=== PATIENT | female | born 1975 | race Caucasian/White ===

== ENCOUNTER 2016-06-20 12:57 | Emergency (ER) | payer SELFPAY ==
[~2016-06-20] VITALS: Ht 152.4 cm; Wt 41.5 kg
[~2016-06-20 12:57] MED LIST: NAPR500 PO
[2016-06-20 12:59] VITALS: BP 122/70; PULSE 98; RESP 20; TEMP 98.5; O2SAT 98
[2016-06-20] MEDS ORDERED: PERM5CRE11 TOPICAL (14:10)
[2016-06-20] MEDS ORDERED: PRED-503 PO (14:10)
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
== END 2016-06-20 15:00 | disposition home or self-care (01) ==
LOC: NEPK 12:57
DX: R21 Rash and other nonspecific skin eruption (principal); F17.210 Nicotine dependence, cigarettes, uncomplicated; Z88.0 Allergy status to penicillin; Z88.5 Allergy status to narcotic agent
CPT/HCPCS: 99283

== ENCOUNTER 2016-09-21 13:40 | Emergency (ER) | payer SELFPAY ==
[~2016-09-21] VITALS: Ht 165.1 cm; Wt 50.0 kg
[2016-09-21 13:42] VITALS: BP 142/77; PULSE 91; RESP 16; TEMP 97.9; O2SAT 98
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
[2016-09-21] MEDS ORDERED: KETOROLAC TROMETHAMINE 60 MG/2 ML (IM) VIAL IM ONE (16:00)
== END 2016-09-21 16:54 | disposition home or self-care (01) ==
LOC: NEPK 13:40
DX: S40.011A Contusion of right shoulder, initial encounter (principal); S40.211A Abrasion of right shoulder, initial encounter; V28.4XXA Motorcycle driver injured in noncollision transport accident in traffic accident, initial encounter; Y92.414 Local residential or business street as the place of occurrence of the external cause
CPT/HCPCS: 73030; 96372; 99284; J1885

== ENCOUNTER 2016-09-24 19:40 | Emergency (ER) | payer SELFPAY ==
[~2016-09-24] VITALS: Ht 152.4 cm; Wt 50.0 kg
[2016-09-24 19:41] VITALS: BP 118/63; PULSE 80; RESP 14; TEMP 98.3; O2SAT 100
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
== END 2016-09-24 23:08 | disposition left against medical advice (07) ==
LOC: NED 19:40
DX: R23.8 Other skin changes (principal)
CPT/HCPCS: 99281

== ENCOUNTER 2017-03-14 01:07 | Emergency (ER) | payer SELFPAY ==
[~2017-03-14] VITALS: Ht 152.4 cm; Wt 50.0 kg
[2017-03-14 01:09] VITALS: BP 115/68; PULSE 81; RESP 16; TEMP 98.3; O2SAT 100
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
[2017-03-14] MEDS ORDERED: IBUPROFEN 400 MG TAB PO ONE (03:45)
== END 2017-03-14 03:55 | disposition home or self-care (01) ==
LOC: NEPC 01:07
DX: S09.90XA Unspecified injury of head, initial encounter (principal); F17.210 Nicotine dependence, cigarettes, uncomplicated; W10.8XXA Fall (on) (from) other stairs and steps, initial encounter; Y93.E2 Activity, laundry; Y92.009 Unspecified place in unspecified non-institutional (private) residence as the place of occurrence of the external cause; Z88.5 Allergy status to narcotic agent; Z88.0 Allergy status to penicillin
CPT/HCPCS: 70450; 99284

== ENCOUNTER 2017-07-14 16:17 | Emergency (ER) | END 2017-07-14 16:40 | disposition left against medical advice (07) | DX: B35.1 Tinea unguium (principal) ==